=== PATIENT | male | born 1960 | race Caucasian/White ===

== ENCOUNTER 2017-08-01 19:30 | Emergency (ER) | payer BC ==
[~2017-08-01] VITALS: Ht 182.9 cm; Wt 111.5 kg
[2017-08-01 19:34] VITALS: BP 173/100; PULSE 68; RESP 20; TEMP 97.7; O2SAT 98
[2017-08-01] MEDS ORDERED: SODIUM CHLOR 0.9% 1000 ML INJ 1,000 ML IV SCH (19:37)
[2017-08-01] MEDS ORDERED: ASPI-516 CHEW (19:39)
[2017-08-01] MEDS ORDERED: HYDR25TA5 PO (19:39)
[2017-08-01] MEDS ORDERED: OMEG1CAP28 PO (19:39)
[2017-08-01] MEDS ORDERED: OLME1TAB13 PO (19:39)
[2017-08-01] MEDS ORDERED: HYDR-3583 PO (19:39)
[2017-08-01] MEDS ORDERED: ONDANSETRON HCL 4 MG/2 ML VIAL IVP ONE (19:45)
[2017-08-01] MEDS ORDERED: ORPHENADRINE INJ 60 MG/2 ML AMP IM ONE (19:45)
[2017-08-01] MEDS ORDERED: KETOROLAC TROMETHAMINE 60 MG/2 ML (IM) VIAL IVP ONE (19:45)
[2017-08-01] MEDS ORDERED: HYDROmorphone HCL PF 2 MG/ML VIAL IV PUSH ONE (19:45)
--- NOTE | 2017-08-01 19:52 | PD ---
HPI Chief Complaint: Pain: Acute or Chronic Time Seen by Provider: 19:36 Travel History International Travel<30 days: No Contact w/Intl Traveler<30days: No Traveled to known affect area: No History of Present Illness HPI The patient is a 57-year-old male who at 1:00 began having pain in his right lumbar spine and hip. The pain got worse over the day and eventually got so severe he could not get out of bed and called [facility] to come to the emergency department. The patient states the pain shoots all the way from the right low back to the right foot. He denies any bladder or bowel dysfunction. He denies any fever. He denies any injury. He does have a history of a cervical disc but denies having any herniated disks in his low back. He was given 6 of morphine by [facility] personnel in the field. He states the pain is still a 10 over 10 and sharp in quality. He comes from [place] and was planning to leave tomorrow back to [place]. PFSH Past Medical History High Cholesterol: Yes Hypertension: Yes Tetanus Vaccination: Unknown Influenza Vaccination: Yes Social History Alcohol Use: Yes (occ) Tobacco Use: No Substance Use: No Allergies-Medications (Allergen,Severity, Reaction): Coded Allergies: No Known Allergies (Unverified , 08/01/17) Reported Meds & Prescriptions Reported Meds & Active Scripts Active Reported Aspirin 81 Mg Chew 81 Mg CHEW DAILY Hydrocodone-Acetaminophen 10-325 mg Tab 1 Tab PO Q6H PRN Eohlo-6-Rtfb Ethyl Esters 1 Gm Cap 2 Gm PO BID Hydrochlorothiazide 25 Mg Tab 25 Mg PO DAILY Olmesartan 40 Mg Tab 40 Mg PO DAILY Review of Systems Except as stated in HPI: all other systems reviewed are Neg Physical Exam Narrative GENERAL: The patient is alert, oriented 3 in moderate to severe distress with his low back pain. His vital signs show blood pressure 173/100 but are otherwise normal. SKIN: Focused skin assessment warm/dry. HEAD: Atraumatic. Normocephalic. EYES: Pupils equal and round. No scleral icterus. No injection or drainage. ENT: No nasal bleeding or discharge. Mucous membranes pink and moist. NECK: Trachea midline. No JVD. CARDIOVASCULAR: Regular rate and rhythm. No murmur appreciated. RESPIRATORY: No accessory muscle use. Clear to auscultation. Breath sounds equal bilaterally. GASTROINTESTINAL: Abdomen soft, non-tender, nondistended. Hepatic and splenic margins not palpable. MUSCULOSKELETAL: No obvious deformities. No clubbing. No cyanosis. No edema. There is tenderness diffusely on the right lumbar spine. Straight leg raising is positive at 1 on the right, deep tendon reflexes are 0 bilaterally in the patella and 1+ bilaterally in the Achilles. Pinprick is decreased on the right all the way down the right leg, particularly medially NEUROLOGICAL: Awake and alert. No obvious cranial nerve deficits. Motor grossly within normal limits. Normal speech. PSYCHIATRIC: Appropriate mood and affect; insight and judgment normal. Data Data Last Documented VS Vital Signs Date Time Temp Pulse Resp B/P (MAP) Pulse Ox O2 Delivery O2 Flow Rate FiO2 08/01/17 21:36 83 18 159/88 (111) 97 Room Air 08/01/17 19:34 97.7 Orders Orders Ketorolac Inj (Toradol Inj) (08/01/17 19:45) Orphenadrine Inj (Norflex Inj) (08/01/17 19:45) Ondansetron Inj (Zofran Inj) (08/01/17 19:45) Sodium Chlor 0.9% 1000 Ml Inj (Ns 1000 M (08/01/17 19:37) Hydromorphone Pf Inj (Dilaudid Pf Inj) (08/01/17 19:45) Mri L Spine W/O Contrast (08/01/17 19:44) Lorazepam Inj (Ativan Inj) (08/01/17 21:00) Radiology Film Requests (08/01/17 ) MDM Medical Decision Making Medical Screen Exam Complete: Yes Emergency Medical Condition: Yes Medical Record Reviewed: Yes Interpretation(s) The MRI of the L-spine shows annular disc bulge at L2-3 with mild flattening of the anterior thecal sac. There is a high intensity zone in the posterior annular region which could indicate a small annular tear. Mild disc bulges at L3-4 and L4-5 levels with mild flattening of the anterior thecal sac no focal protrusion. Degenerative disc change at L2-3 through L4-5 levels. There is sinus lipomatosis beginning at the L2 level extending down to the L5-S1 level which extends circumferentially around the thecal sac which is small in size at these levels. Differential Diagnosis Herniated nucleus the pulses lumbar spine, fractured lumbar spine-unlikely, acute lumbar strain, Narrative Course It is now 10 PM and the patient feels much better and wants to go to [place]. He may wish to leave [facility] after he picks up his medications. He will be given prescriptions for Percocet 7.5, Flexeril and Motrin 800 mg. The MRI disc will be printed for this patient so he can take it back with him to [place]. Impression: Lumbar radiculopathy Diagnosis Primary Impression: Lumbar radiculopathy, acute Med/Other Pt SpecificInfo: Prescription(s) given Scripts Ibuprofen (Ibuprofen) 800 Mg Tab 800 MG PO TID, #44 TAB 0 Refills Prov: Stevo Nicholson MD 08/01/17 Cyclobenzaprine (Flexeril) 10 Mg Tab 10 MG PO TID for Muscle Spasm, #60 TAB 0 Refills Prov: Stevo Nicholson MD 08/01/17 Oxycodone-Acetaminophen (Percocet) 7.5-325 mg Tab 1 TAB PO Q4H Y for PAIN, #30 TAB 0 Refills Prov: Stevo Nicholson MD 08/01/17 Disposition: 01 DISCHARGE HOME Condition: Stable Stevo Nicholson MD Aug 01, 2017 19:52
[2017-08-01 20:12] VITALS: BP 173/92; PULSE 75; RESP 16; O2SAT 97
[2017-08-01] MEDS ORDERED: LORazepam 2 MG/ML VIAL IV PUSH ONE (21:00)
[2017-08-01 21:36] VITALS: BP 159/88; PULSE 83; RESP 18; O2SAT 97
--- NOTE | 2017-08-01 21:47 | RADRPT ---
EXAM DATE/TIME: 08/01/2017 21:08 [facility] COMPARISON: No previous studies available for comparison. INDICATIONS : Pain. Low back and left leg pain. MEDICAL HISTORY : Hypertension. Hypercholesterolemia. SURGICAL HISTORY : Total knee replacement, left. Total knee replacement, right. ENCOUNTER: Initial ACUITY: 1 day PAIN SCORE: 6/10 LOCATION: [facility] TECHNIQUE: Multiplanar multisequence MRI of the lumbar spine was performed without contrast. FINDINGS: The most caudal appearing lumbar vertebra is numbered as L5. VERTEBRAE: Homogeneous signal. Normal alignment. DISCS: Disc desiccation at the L2-3 through L4-5 levels. There is mild disc space narrowing. Anterior extrad ural defects are noted at these levels with small focal area of high signal in the posterior annulus at L2-3. CONUS: Normal level and configuration. There is evidence of sinus lipomatosis at the L2-L5 level the fat pos terior to the vertebral bodies. T12-L1: The thecal sac has a normal diameter. No evidence of disc bulge or protrusion. The neural foramina are patent bilaterally. L1-L2: The thecal sac has a normal diameter. No evidence of disc bulge or protrusion. The neural foramina are patent bilaterally. L2-L3: Sinus lipomatosis is noted surrounding the thecal sac which is small in size. There is a mild to mode rate disc bulge with mild flattening of the anterior thecal sac and no focal protrusion. There is mil d narrowing of the neural foramina. L3-L4: Sinus lipomatosis is noted surrounding the thecal sac which is small in size. There is a mild annular disc bulge with minimal flattening of the anterior thecal sac and no focal protrusion. The neural fo ramina are patent. There are mild degenerative changes involving the facet joints. L4-L5: There is a mild disc bulge with mild flattening the anterior thecal sac and no focal protrusion.. Th e neural foramina are patent bilaterally. L5-S1: The thecal sac has a normal diameter. No evidence of disc bulge or protrusion. The neural foramina are patent bilaterally. There are mild degenerative changes involving the lower facets. CONCLUSION: 1. Annular disc bulge at L2-3 with mild flattening the anterior thecal sac. There is a high intensity zone in the posterior annular region which could indicate a small annular tear. 2. Mild disc bulges at the L3-4 and L4-5 levels with mild flattening of anterior thecal sac no focal protrusion. 3. Degenerative disc change at the L2-3 through L4-5 levels. 4. Sinus lipomatosis beginning at the L2 level extending down to the L5-S1 level which extends circum ferentially around the thecal sac which is small in size at these levels. Daryl Yang MD on August 01, 2017 at 21:39 Board Certified Radiologist. This report was verified electronically.
[2017-08-01] MEDS ORDERED: PERC7.5T13 PO (22:04)
[2017-08-01] MEDS ORDERED: CYCL10TA PO (22:04)
[2017-08-01] MEDS ORDERED: IBUP1TAB7 PO (22:04)
[2017-08-01 22:15] VITALS: BP 155/88
== END 2017-08-01 22:23 | disposition home or self-care (01) ==
LOC: PHED 19:30
DX: M51.16 Intervertebral disc disorders with radiculopathy, lumbar region (principal); E78.00 Pure hypercholesterolemia, unspecified; I10 Essential (primary) hypertension; E88.2 Lipomatosis, not elsewhere classified
CPT/HCPCS: 72148; 96361; 96372; 96374; 96375; 99285; J1170; J1885; J2060; J2360; J2405; J7030